=== PATIENT | female | born 1970 | race Two or more races ===

== ENCOUNTER 2023-05-17 15:30 | Outpatient (REF) | payer OTHER, SELFPAY ==
[2023-05-17 15:52] LABS: MANUAL DIFF FLAG NO
[2023-05-17 17:38] LABS: Basophils Absolute Auto 0.1 X10*3/uL (0.0-0.2); Basophils Percent Auto 0.9 % (0-2); Eosinophils Absolute Auto 0.2 X10*3/uL (0.0-0.4); Eosinophils Percent Auto 1.4 % (0-4); Hematocrit 43.8 % (37.0-47.0); Hemoglobin 14.7 g/dl (12.0-16.0); Imm Gran Abs Auto 0.05 X10*3/uL (0.00-0.03); Imm Gran Pct Auto 0.4 % (0.0-0.4); Lymphocytes Percent Auto 27.1 % (20-40); Mean Corpuscular HGB Conc 33.6 g/dl (31.0-35.0); Mean Corpuscular Hemoglobin 29.9 pg (27.0-33.0); Mean Corpuscular Volume 89.2 fL (80.0-98.0); Monocytes Absolute Auto 0.5 X10*3/uL (0.1-1.2); Monocytes Percent Auto 4.2 % (2-11); Neutrophils Absolute Auto 7.4 x10*3/uL (2.0-8.3); Platelet Count 342 X10*3/uL (160-400); Red Blood Count 4.91 X10*6/uL (4.20-5.50); Red Cell Distribution Width 13.1 % (11.0-16.0); White Blood Count 11.2 X10*3/uL (4.8-10.8)
[2023-05-17 17:50] LABS: Anion Gap 14 (12-20); Blood Urea Nitrogen 12 mg/dL (9-16); Carbon Dioxide 29 mmol/L (22-29); Chloride 102 mmol/L (96-108); Estimated Glomerular Filt Rate 38; Glucose Random 86 mg/dL (60-115); Potassium 4.1 mmol/L (3.3-5.1); Sodium 141 mmol/L (135-145)
[2023-05-17 18:03] LABS: Erythrocyte Sedimentation Rate 7 MM/HR (0-20)
[2023-05-18 08:18] LABS: Syphilis Screen Nonreactive (Nonreactive)
[2023-05-18 18:35] LABS: Lyme Abs Screen <0.90 index
[2023-05-20 08:24] LABS: Anti Nuclear Antibody Screen NEGATIVE (NEGATIVE)
== END 2023-05-17 15:31 | disposition home or self-care (01) ==
LOC: HO.LAB 15:30
PROVIDERS: Visit Provider Psychiatry & Neurology Neurology
DX: R51.9 Headache, unspecified (principal)
CPT/HCPCS: 36415; 80048; 85025; 85652; 86038; 86617; 86618; 86780

== ENCOUNTER 2025-01-09 15:53 | Outpatient (AMB) | payer OTHER, SELFPAY ==
--- NOTE | 2025-01-09 16:00 | MHC.OFFVIS ---
Intake Visit Reasons: 6 months Allergies No Known Allergies Allergy (Verified 01/09/25 16:04) Medication List - Last Reconciled 01/09/25 by Nereyda Head CNP atorvastatin 10 mg PO BEDTIME eurrfvcmnw-wqgaetkiwfxpy-ihfw 50-325-40 mg 1 tab PO Q8H PRN cholecalciferol (vitamin D3) (Vitamin D3) 50 mcg PO DAILY loratadine 10 mg PO DAILY topiramate 50 mg PO BID HPI Comments Details: 54-year-old woman with long-standing history of headaches and chronic stress. She was doing okay. Headaches were happening about 3x/week with photophobia, sonophobia, and nausea. Butalbital as needed helped. Sleep was okay. She still had some stress. [facility] Medical History (Updated 01/09/25 @ 16:02 by Nereyda Head CNP) Migraine without aura Migraine Review of Systems Const Denies chills, Denies daytime sleepiness, Reports difficulty sleeping, Denies fatigue, Denies fever(s), Denies frequent falls, Reports headache(s), Denies increased appetite, Denies poor appetite, Denies snoring, Denies weakness, Denies weight gain and Denies weight loss Eyes Denies loss of vision ENT Denies vertigo, Reports dizziness and Reports headache(s) Card Denies chest pain at rest, Denies chest pain with activity, Denies syncope, Denies leg edema and Denies palpitations Resp Denies snoring GI Denies constipation, Denies heartburn, Denies diarrhea and Denies nausea Denies urinary frequency, Denies urinary incontinence and Denies urinary urgency Musc Denies abnormal gait, Denies numbness and Denies tingling Skin/Breast Denies dry skin and Denies rash Neuro Denies abnormal gait, Denies vertigo, Reports dizziness, Denies syncope, Denies frequent falls, Reports headache(s), Denies lack of coordination, Denies loss of vision, Denies memory loss, Denies numbness, Denies restless legs, Denies seizure-like activity, Denies tingling, Denies paresthesias, Denies tremor(s) and Denies weakness Psych Denies anxiety, Denies depression, Denies auditory hallucinations, Denies memory loss, Denies visual hallucinations and Denies suicidal ideation Endo Denies fatigue and Denies palpitations Physical Exam Const Other: General Appearance:? normal, in no acute distress. Skin:? no rashes, no significant birthmarks. Heart:? S1, S2 normal, no murmurs. Lungs:? clear anteriorly and posteriorly. Extremities:? no edema. Psych:? alert, oriented, cognitive function intact, cooperative with exam. Neuro Other: Mental Status:?Normal attention, orientation, memory and affect.? Cranial Nerves:?Pupils are equal, round and reactive to light. External occular muscles are intact. Visual tanner are full. Face is symmetrical. Facial sensations are normal. Tongue is midline. Palate elevates symmetrically. Shoulder shrugging is normal. Hearing to bedside conversation is normal. Motor Examination:?Normal muscle tone, bulk and strength,?Deep tendon reflexes are 2+,?Plantars are flexor.? Sensory Exam:?....? Coordination:?No ataxia,?no titubation.? Gait Exam: Within normal limits. Cerebellar Signs:?Psrrtz-ii-wwgj and jxjq-pu-pqxr is normal.? Extrapyramidal System:?No tremor, rigidity with normal facial expressions.? Pronator Drift:?Not present.? Involuntary Movements:?No tremors seen.? Speech:?Normal.? Assessment & Plan Assessment & Plan (1) Migraine without aura: Code(s): G43.009 - Migraine without aura, not intractable, without status migrainosus Category: Medical Qualifiers: Status migrainosus presence: without status migrainosus Intractability: not intractable Qualified Code(s): G43.009 - Migraine without aura, not intractable, without status migrainosus Plan: Continue topiramate 50mg 1 tablet twice a day Continue tvxzftghvm-[id number]-drwx 50-325-40mg 1 tablet as needed q8h for headache #10 for 30 days Start ondansetron 4mg 1 tablet as needed for nausea (2) Chronic daily headache: Code(s): R51.9 - Headache, unspecified Category: Medical Plan Meds tried: amitriptyline, sumatriptan Medications: New topiramate 50 mg PO BID 180 tabs 1RF 90 days ondansetron 4 mg PO DAILY PRN 10 tabs 5RF nausea and vomiting 30 days eaasfgnucu-jxpsakjgpfejr-erbv 50-325-40 mg 1 tab PO Q8H PRN 10 tabs 5RF headache 30 days Coding Level of Care Code Est Pt Level 4 (06101) Diagnoses Migraine without aura and without status migrainosus, not intractable G43.009 Status migrainosus presence: without status migrainosus Intractability: not intractable Chronic daily headache R51.9
--- OUTSIDE RECORDS SUMMARY | 2025-01-09 16:09 | XMS_ITS | Clinical Summary ---
Author Organization [facility] [address] [facility] Address [address] [place], [place] Phone Care Team Providers Care Financial Recruiter Name Role Phone Aleja Fitch MD Primary Care Prov ider Allergies No known active allergies Medications topiramate (TOPAMAX) 50 mg tablet TAKE 1 TABLET BY MOUTH EVERY DAY FOR 90 DAYS 01/27/20 24 Active loratadine (CLARITIN) 10 mg tablet Take 1 Tablet by mouth daily. 02/01/20 24 Active multivitamin with minerals (MULTIPLE VITAMIN-MINERA LS ORAL) Take by mouth. Active atorvastatin (LIPITOR) 10 mg tablet TAKE 1 TABLET BY MOUTH EVERYDAY AT BEDTIME 90 tablet 1 07/21/19 25 Active Vitamin D3 50 mcg (2,000 unit) tablet TAKE 1 TABLET BY MOUTH EVERY DAY 90 tablet 1 09/15/19 25 Active meclizine (ANTIVERT) 25 mg tablet Take 1 tablet (25 mg total) by mouth 2 (two) times a day if needed for dizziness for up to 20 doses. 20 tablet 10/26/19 25 Active traMADoL (ULTRAM) 50 mg tablet Take 1 tablet (50 mg total) by mouth at bedtime as needed for moderate pain. Max Daily Amount: 50 mg 15 tablet 01/03/20 25 Active linaCLOtide (Linzess) 145 mcg capsule TAKE 1 CAPSULE BY MOUTH EVERY DAY 11/21/19 24 025 Discontinued(No n-compliance) predniSONE (DELTASONE) 10 mg tablet Take 2 tabs PO daily for 3 days then 1 tab PO daily for 4 days 10 tablet 12/13/19 25 025 Discontinued(Th erapy completed) baclofen (LIORESAL) 10 mg tablet Take 1 tablet (10 mg total) by mouth 2 (two) times a day if needed for muscle spasms (or pain). 60 each 12/13/19 25 025 Discontinued(In effective) traMADoL (ULTRAM) 50 mg tablet Take 1 tablet (50 mg total) by mouth at bedtime as needed for moderate pain. Max Daily Amount: 50 mg 15 tablet 01/03/20 25 025 Discontinued Active Problems Problem Noted Date Diagnosed Date Overweight (BMI 25.0-29.9) 02/01/2024 Seasonal allergies 02/01/2024 Vitamin D deficiency 09/09/2022 Mixed hyperlipidemia 03/27/2016 Encounters Date Type Department Care Team Description 01/02/2025 9:00 AM EDT Office Visit Adult Medicine [address] [phone] Patty Smith PA Acute exacerbation of chronic low back pain (Primary Dx) 01/01/2025 Telephone Adult [address] [phone] Aleja Alexander MD Referral (Neurology Referral) 12/12/2024 1:20 PM EDT - 12/12/2024 11:59 PM EDT Hospital Encounter [address] [phone] Acute exacerbation of chronic low back pain Discharge Disposition: Home or Self Care 12/12/2024 1:00 PM EDT Office Visit Adult [address] [phone] Patty Smith PA Acute exacerbation of chronic low back pain (Primary Dx) 11/27/2024 Telephone [facility] Occupational Therapy [address] [phone] Sherri Peterson OT 11/23/2024 4:30 PM EDT Evaluation [facility] [address] [phone] Sherri Peterson, OT Vertigo 11/23/2024 Plan of Care Documentation [facility] Occupational Therapy [address] [phone] 10/25/2024 7:30 AM EDT Office Visit [address] [phone] Aleja Alexander MD Adult general medical examination (Primary Dx); Routine medical exam; Chronic idiopathic constipation; Vertigo; Pneumococcal vaccination indicated from Last 3 Months Immunizations Name Administration Dates Next Due Influenza Quadravalent, MDCK , 0.5ml, preservative free (Flucelvax) 6mo and older 03/16/2023,04/16/2022,02/16/2020,2018 Influenza Quadravalent, MDCK , 0.5ml, with preservative (Flucelvax) 6mo and older 02/16/2018,04/22/2017 Influenza trivalent, 0.5mL, preservative free (Fluarix; FluLaval; Fluzone) ages 6mo and older (Afluria) 3 years and older 03/29/2024,03/27/2016 RegeneMed SARS-CoV-2 COVID-19, mRNA, LNP-S, preservative free 07/06/2021,11/03/2020,10/13/2020 Pneumococcal conjugate 20 va lent (Prevnar 20, PCV 20) 2mo and older 10/25/2024 Tdap Tetanus diptheria acell ular pertussis (Boostrix; Adacel) 7yo and older 09/09/2022,09/09/2012 Surgical History Surgery Date Site/Laterality Comments OTHER SURGICAL HISTORY PROCEDURE: ---- OTHER ----; COMMENT: breast augmentation OTHER SURGICAL HISTORY PROCEDURE: ---- OTHER ----; COMMENT: abdominoplasty TUBAL LIGATION PROCEDURE: HISTORICAL TUBAL LIGATION OTHER SURGICAL HISTORY PROCEDURE: ---- OTHER ----; COMMENT: Liposuction and fat transfer COLONOSCOPY 02/18/2022 PROCEDURE: HISTORICAL COLONOSCOPY; COMMENT: appendiceal nodule or inversion - biopsy normal mucosa OTHER SURGICAL HISTORY PROCEDURE: IMPLANT BREAST SILICONE/EQ Medical History Medical History Date Comments Migraines DX:Migraines Back pain DX:Back pain GERD (gastroesophageal reflux disease) DX:GERD (gastroesophageal reflux disease) Hyperlipidemia DX:Hyperlipidemi a Depression DX:Depression Anxiety DX:Anxiety Tobacco abuse DX:Tobacco abuse Family History Medical History Relation Name Comments No Known Problems Brother 1 No Known Problems Brother 2 Hyperlipidemia Father No Known Problems Maternal Grandfather No Known Problems Maternal Grandmother Heart attack Mother brain aneurysm No Known Problems Paternal Grandfather Other: Tremor Paternal Grandmother arthri tis No Known Problems Sister No Known Problems Son 1 No Known Problems Son 2 Relation Name Status Comments Brother 1 Alive Brother 2 Alive Father Alive Maternal Grandfather Maternal Grandmother Mother Paternal Grandfather Paternal Grandmother Sister Alive Son 1 Alive Son 2 Alive Son 3 Alive Social History Tobacco Use Types Packs/Day Years Used Date Smoking Tobacco: Former Cigarettes Q uit: 05/24/2017 Smokeless Tobacco: Never Tobacco Cessation:Counseling Given: Not Answered Alcohol Use Standard Drinks/Week Comments No 0 (1 standard drink = 0.6 oz pur e alcohol) Housing Instability Answer Date Recorde d Are you worried that in the next 2 months you may not have stable housing? No 08/15/2024 Food Access & Nutrition Answer Date Rec orded Do you have access to a vari ety of food including fruits and vegetables? Yes 08/15/2024 Access to Healthcare Answer Date Record ed Within the last 3 months, ho w many times did you visit the emergency department for your medical care? 0 08/15/2024 Health Literacy Answer Date Recorded How often do you need to hav e someone help you when you read instructions, pamphlets, or other written material from your doctor or pharmacy? Sometimes 08/15/2024 Caregiver: How often do you need to have someone help you when you read instructions, pamphlets, or other written material from your doctor or pharmacy? Not on file 08/15/2024 Financial Risk Answer Date Recorded How hard is it for you to pa y for the very basics like food, housing, medical care, and air conditioning / heating? Somewhat hard 08/15/2024 Transportation Answer Date Recorded Has the lack of transportati on kept you from meetings, work, or from getting things needed for daily living? No Has the lack of transportati on kept you from medical appointments or from getting medications? No 08/15/2024 Social Isolation Answer Date Recorded How often do you feel lonely or isolated from those around you? Sometimes 08/15/2024 Food Risk Answer Date Recorded Within the past 12 months we worried whether our food would run out before we got money to buy more. Never true 08/15/2024 Within the past 12 months th e food we bought just didn't last and we didn't have money to get more. Never true 08/15/2024 Dependent Care Answer Date Recorded Do you need help finding or paying for care for your loved ones. For example, manager child or elderly care for an older adult? No 08/15/2024 Education Answer Date Recorded Do you think completing more education or training, like finishing a GED, going to college, or learning a trade, would be helpful for you? No 08/15/2024 Employment and Income Answer Date Recor ded During the last four weeks, have you been actively looking for work? No 08/15/2024 Living Situation Answer Date Recorded What is your living situation? 0 08/15/2024 Comments No Sex and Gender Information Value Date Recorded Sex Assigned at Not on file Legal Sex Female 6:17 AM EST Gender Identity Not on file Sexual Orientation Not on file Obstetrics History Last Filed Vital Signs Vital Sign Reading Time Taken Comments Blood Pressure 117/71 01/02/2025 8:47 AM EDT Pulse 70 01/02/2025 8:47 AM EDT Temperature 36.1 C (97 F) 01/02/2025 8:47 AM EDT Respiratory Rate 15 01/02/2025 8:47 AM EDT Oxygen Saturation 98% 01/02/2025 8:47 AM EDT Inhaled Oxygen Concentration - - Weight 61.2 kg (135 lb) 01/02/2025 8:47 AM EDT Height 152.4 cm (5') 01/02/2025 8:47 AM EDT Body Mass Index 26.37 01/02/2025 8:47 AM EDT Plan of Treatment Upcoming Encounters Date Type Department Care Team (Late st Contact Info) Description 01/16/2025 4:30 PM EDT Evaluation [address] [phone] Margaret Reynoso, PT 03/07/2025 8:00 AM EDT Office Visit Adult Medicine [address] [phone] Aleja Fitch MD [address] [place] [phone] 04/11/2025 8:50 AM EST Office Visit Gastroenterology [place] [address] [facility] [address] [place] [phone] Aster Mary PA 175 [facility] [address] [place] [address] 10/26/2025 7:30 AM EDT Office Visit Adult Medicine [address] [phone] Aleja Fitch MD [address] [place] [phone] Health Maintenance Due Date Last Done Comments Zoster Vaccines (1 of 2) 2021 Cervical Cancer Screening: Pap Smear 05/22/2023 05/22/2020 Influenza Vaccine (#1) 2025 , 03/16/2023, 04/16/2022, Additional history exists Social Influencers of Health Screening 08/15/2025 08/15/2024 Breast Cancer Screening 10/06/2025 10/06/2024, 11/11 Cholesterol Screening (Lipid Panel) 10/25/2029 10/25/2024, 02/01/2024, 02/01/2024 Colorectal Cancer Screening: Colonoscopy 02/21/2032 02/18/2022 DTaP,Tdap,and Td Vaccines (3 - Td or Tdap) 09/09/2032 09/09/2022, 09/09/2012 HIV Screening Completed 03/28/2016 Hepatitis C Screening Completed 03/28/2016 COVID-19 Vaccine Discontinued 03/06/2023, , 11/03/2020, Additional history exists Depression Screening Completed 08/15/2024 Pneumococcal Vaccine: 50+ Years Completed 10/25/2024 HIB Vaccines Aged Out No longer eligi ble based on patient's age to complete this topic HPV Vaccines Aged Out No longer eligi ble based on patient's age to complete this topic Hepatitis A Vaccines Aged Out No long er eligible based on patient's age to complete this topic Hepatitis B Vaccines Discontinued IPV Vaccines Aged Out No longer eligi ble based on patient's age to complete this topic MMR Vaccines Aged Out No longer eligi ble based on patient's age to complete this topic Meningococcal ACWY Vaccine Aged Out N o longer eligible based on patient's age to complete this topic Meningococcal B Vaccine Aged Out No l onger eligible based on patient's age to complete this topic RSV Immunization Patients Under 20 months Aged Out No longer eligible based on patient's age to complete this topic Varicella Vaccines Aged Out No longer eligible based on patient's age to complete this topic Goals Goal Patient Goal Type Associated Problems Recent Progress Patient-Stated? Author vestibular rehab 6-8 visits General No Sherri Peterson, OT Note: Return demo HEP w/ progression TUG in no greater than 11 sec w/out LOB X1 horiz viewing at least 100 bpm w/out signif symptoms to promote tolerance for dual screens at work Restored tolerance for walking dogs, performing light weight workout w/out signif symptoms Gait w/ horiz head turns to scan for items in environ ie grocery shelves, no LOB nor signif subjective dizziness Procedures Procedure Name Priority Date/Time Associated Diagnosis Comments XR LUMBAR SPINE 4+ VIEWS Routine 12/12/2024 1:36 PM EDT Acute exacerbation of chronic low back pain CBC WITH AUTO DIFFERENTIAL Routine 10/25/2024 8:28 AM EDT Adult general medical examination Chronic idiopathic constipation Vertigo COMPREHENSIVE METABOLIC PANEL Routine 10/25/2024 8:28 AM EDT Adult general medical examination Chronic idiopathic constipation Vertigo LIPID PANEL WITH REFLEX TO DIRECT LDL Routine 10/25/2024 8:28 AM EDT Adult general medical examination Chronic idiopathic constipation Vertigo CBC AND DIFFERENTIAL Routine 10/25/2024 8:28 AM EDT Adult general medical examination Chronic idiopathic constipation Vertigo THYROID STIMULATING HORMONE Routine 10/25/2024 8:28 AM EDT Adult general medical examination Chronic idiopathic constipation Vertigo ECG 12-LEAD TRACING ONLY Routine 10/25/2024 8:13 AM EDT Vertigo EXTERNAL MAMMOGRAM REPORT 10/06/2024 HM COLONOSCOPY Routine 02/18/2022 HM PAP SMEAR Routine 05/22/2020 HEPATITIS C SCREENING Routine 03/28/2016 HIV SCREENING Routine 03/28/2016 from Last 3 Months or Most Recently Relevant to Health Maintenance Results * XR Lumbar Spine 4+ Views (12/12/2024 1:36 PM EDT) Anatomical Region Laterality Modality Spine, L-spine Radiographic Alecia ging 12/12/2024 4:57 PM EDT Narrative 12/12/2024 4:59 PM EDT Lumbosacral spine, 4 views. History pain. Compared with prior studies, latest from 03/29/2024. Or vertebral bodies are maintained in height. There is minimal arm discogenic spurring at several levels, unchanged. There are mild hypertrophic changes in the facet joints at L5-S1 level. There is a stable small sclerotic focus in the left iliac bone, most likely bone island. There is a large soft tissue calcification adjacent to the left greater trochanter. There is IUD in in the pelvis. When compared with previous examination no significant interval change noted. CONCLUSIONS: Stable degenerative changes. Additional other stable findings as detailed. -------- FINAL REPORT -------- Dictated By: Vale Hartmann Dictated Date: 12/12/2024 16:57 ET Assigned Physician: Vale Hartmann Reviewed and Electronically Signed By: Vale Hartmann Signed Date: 12/12/2024 16:59 ET Workstation ID: [id number] Transcribed By: Self Edit Transcribed Date: 12/12/2024 16:57 ET Procedure Note Vale Hartmann MD - 12/12/2024 Lumbosacral spine, 4 views. History pain. Compared with prior studies, latest from 03/29/2024. Or vertebral bodies are maintained in height. There is minimal armdiscogenic spurring at several levels, unchanged. There are mildhypertrophic changes in the facet joints at L5-S1 level. There is a stablesmall sclerotic focus in the left iliac bone, most likely bone island.There is a large soft tissue calcification adjacent to the left greatertrochanter. There is IUD in in the pelvis. When compared with previous examination no significant interval changenoted. CONCLUSIONS: Stable degenerative changes. Additional other stable findingsas detailed. -------- FINAL REPORT -------- Dictated By: Vale Hartmann Dictated Date: 12/12/2024 16:57 ET Assigned Physician: Vale Hartmann Reviewed and Electronically Signed By: Vale Hartmann Signed Date: 12/12/2024 16:59 ET Workstation ID: [id number] Transcribed By: Self Edit Transcribed Date: 12/12/2024 16:57 ET Patty BRYAN IMG XR PROCEDURES Final Result * Lipid panel with reflex to direct LDL (10/25/2024 8:28 AM EDT) Cholesterol 152 0 - 200 mg/dL LAB CHEMISTRY METHOD 10/25/2024 10:53 AM EDT [facility] Triglycerides 112 0 - 150 mg/dL LAB CHEMISTRY METHOD 10/25/2024 10:53 AM EDT [facility] HDL 50 >=40 mg/dL LAB CHEMISTRY METHOD 10/25/2024 10:53 AM EDT [facility] LDL Calculated 80 0 - 100 mg/dL LAB CHEMISTRY METHOD 10/25/2024 10:53 AM EDT [facility] VLDL Cholesterol Gibson 22.4 mg/dL LAB CHEMISTRY METHOD 10/25/2024 10:53 AM EDT [facility] Non HDL Chol. (LDL+VLDL) 102 <145 mg/dL LAB CHEMISTRY METHOD 10/25/2024 10:53 AM EDT [facility] Chol/HDL Ratio 3.0 0.0 - 4.4 LAB CHEMISTRY METHOD 10/25/2024 10:53 AM EDT [facility] Blood Venous blood specimen / Unknown Venipuncture / Unknown 10/25/2024 8:28 AM EDT 10/25/2024 8:34 AM EDT us Aleja Fitch MD LAB BLOOD ORDERABL ES Final Result [facility] [address] [place] [address], * CBC auto differential (10/25/2024 8:28 AM EDT) WBC 8.1 4.8 - 10.8 K/mcL LAB HEMETOLOGY METHOD [facility] RBC 4.60 3.80 - 4.80 M/mcL LAB HEMETOLOGY METHOD 10/25[facility]2024 10[facility] Hemoglobin 13.8 11.5 - 16.0 g/dL LAB HEMETOLOGY METHOD 10/25/2024 10:18 AM EDT [facility] Hematocrit 42.0 35.0 - 47.0 % LAB HEMETOLOGY METHOD 10/25/2024 10:18 AM [facility] MCV 90.5 79.0 - 98.0 FL LAB HEMETOLOGY METHOD 10/25/2024 10:18 AM [facility] MCH 29.7 27.0 - 32.0 pcg LAB HEMETOLOGY METHOD 10/25/2024 10:18 AM [facility] MCHC 32.9 32.0 - 37.0 g/dL LAB HEMETOLOGY METHOD 10/25/2024 10:18 AM [facility] RDW 13.4 11.0 - 15.0 % LAB HEMETOLOGY METHOD 10/25/2024 10:18 AM [facility] Platelets 330 130 - 400 K/mcL LAB HEMETOLOGY METHOD 10/25/2024 10:18 AM [facility] MPV 10.8 7.0 - 11.0 FL LAB HEMETOLOGY METHOD 10/25/2024 10:18 AM [facility] NRBC 0.0 <1.0 % LAB HEMETOLOGY METHOD 10/25/2024 10:18 AM [facility] NRBC Absolute 0.00 <0.10 K/mcL LAB HEMETOLOGY METHOD 10/25/2024 10:18 AM [facility] Neutrophils Relative 55.6 % LAB HEMETOLOGY METHOD 10/25/2024 10:18 AM [facility] Lymphocytes Relative 36.3 % LAB HEMETOLOGY METHOD 10/25/2024 10:18 AM [facility] Monocytes Relative 5.1 % LAB HEMETOLOGY METHOD 10/25/2024 10:18 AM [facility] Eosinophils Relative 1.7 % LAB HEMETOLOGY METHOD 10/25/2024 10:18 AM [facility] Basophils Relative 1.1 % LAB HEMETOLOGY METHOD 10/25/2024 10:18 AM [facility] Immature Granulocytes Relative 0.2 % LAB HEMETOLOGY METHOD 10/25/2024 10:18 AM [facility] Neutrophils Absolute 4.49 1.50 - 7.00 K/mcL LAB HEMETOLOGY METHOD 10/25/2024 10:18 AM EDT [facility] Lymphocytes Absolute 2.94 1.00 - 5.00 K/mcL LAB HEMETOLOGY METHOD 10/25/2024 10:18 AM EDT [facility] Monocytes Absolute 0.41 0.20 - 1.00 K/[facility] LAB HEMETOLOGY METHOD 10/25/2024 10:18 AM EDT [facility] Eosinophils Absolute 0.14 0.00 - 0.50 K/[facility] LAB HEMETOLOGY METHOD 10/25/2024 10:18 AM EDT [facility] Basophils Absolute 0.09 0.00 - 0.20 K/[facility] LAB HEMETOLOGY METHOD 10/25/2024 10:18 AM EDT [facility] Immature Granulocytes Absolute 0.02 0.00 - 0.03 K/[facility] LAB HEMETOLOGY METHOD 10/25/2024 10:18 AM EDT [facility] Blood Venous blood specimen / Unknown Venipuncture / Unknown 10/25/2024 8:28 AM EDT 10/25/2024 8:34 AM EDT Aleaj Fitch MD LAB BLOOD ORDERABL ES Final Result [facility] [address] [place] [address], * Thyroid stimulating hormone (10/25/2024 8:28 AM EDT) TSH 1.62 0.40 - 4.00 mcIU/mL LAB CHEMISTRY METHOD 10/25/2024 11:50 AM EDT [facility] Blood Venous blood specimen / Unknown Venipuncture / Unknown 10/25/2024 8:28 AM EDT 10/25/2024 8:34 AM EDT Aleja Fitch MD LAB BLOOD ORDERABL ES Final Result [facility] [address] [place] [address], * Comprehensive metabolic panel (10/25/2024 8:28 AM EDT) Sodium 138 133 - 145 mmol/L LAB CHEMISTRY METHOD 10/25/2024 10:53 AM T [facility] Potassium 4.2 3.5 - 5.5 mmol/L LAB CHEMISTRY METHOD 10/25/2024 10:53 AM [facility] Chloride 109 96 - 110 mmol/L LAB CHEMISTRY METHOD 10/25/2024 10:53 AM [facility] CO2 24 21 - 32 mmol/L LAB CHEMISTRY METHOD 10/25/2024 10:53 AM [facility] Anion Gap 5 3 - 11 LAB CHEMISTRY METHOD 10/25/2024 10:53 AM [facility] Glucose 82 70 - 100 mg/dL LAB CHEMISTRY METHOD 10/25/2024 10:53 AM [facility] BUN 18 5 - 25 mg/dL LAB CHEMISTRY METHOD 10/25/2024 10:53 AM [facility] Creatinine 0.80 0.50 - 1.10 mg/dL LAB CHEMISTRY METHOD 10/25/2024 10:53 AM [facility] eGFR 88 >=60 mL/min/1. 73m2 LAB CHEMISTRY METHOD 10/25/2024 10:53 AM [facility] Comment:Calculation based on the Chronic Kidney Disease Epidemiology Collaboration (CKD-EPI) equation refit without adjustment for race. BUN/Creatinine Ratio 22.5 LAB CHEMISTRY METHOD 10/25/2024 10:53 AM [facility] Calcium 9.2 8.5 - 10.5 mg/dL LAB CHEMISTRY METHOD 10/25/2024 10:53 AM [facility] AST (SGOT) 22 10 - 42 unit/L LAB CHEMISTRY METHOD 10/25/2024 10:53 AM EDT [facility] ALT (SGPT) 39 10 - 60 unit/L LAB CHEMISTRY METHOD 10/25/2024 10:53 AM EDT [facility] Alkaline Phosphatase 106 42 - 121 unit/L LAB CHEMISTRY METHOD 10/25/2024 10:53 AM EDT [facility] Total Protein 7.7 6.0 - 8.0 g/dL LAB CHEMISTRY METHOD 10/25/2024 10:53 AM EDT [facility] Albumin 4.2 3.2 - 5.0 g/dL LAB CHEMISTRY METHOD 10/25[facility]2024 10[facility] Total Bilirubin 0.6 0.0 - 1.4 mg/dL LAB CHEMISTRY METHOD 10/25/2024 10:53 AM EDT [facility] Blood Venous blood specimen / Unknown Venipuncture / Unknown 10/25/2024 8:28 AM EDT 10/25/2024 8:34 AM EDT Aleja Fitch MD LAB BLOOD ORDERABL ES Final Result [facility] [address] [place] [address], * ECG 12 lead Tracing Only (10/25/2024 8:13 AM EDT) Aleja Fitch MD ECG ORDERABLES Fi nal Result * External Mammogram Report (10/06/2024) Anatomical Region Laterality Modality Mammography Provider [facility] IMG BI PROCEDURES Final Result * Colonoscopy (02/18/2022) Colonoscopy no interpretation , abstracted Anatomical Region Laterality Modality Other us Historical Provider HEALTH MAINTENANCE Final Result * Pap Smear (05/22/2020) Pap smear no interpretation , abstracted Historical Provider HEALTH MAINTENANCE Final Result * HIV Screening (03/28/2016) HIV Screening abstracted Historical Provider HEALTH MAINTENANCE Final Result * Hepatitis C Screening (03/28/2016) Hepatitis C Screening abstracted Historical Provider HEALTH MAINTENANCE Final Result from Last 3 Months or Most Recently Relevant to Health Maintenance Insurance * Guarantor: Evon Obrien Account Type Relation to Patient Date of Phone Billing Address Personal/Family Self 1970 [phone] (Work) [address] [place] [phone] [facility] Care Teams Financial Recruiter Relationship Specialty Start Date End Date Aleja Fitch MD [address] [place] [phone] PCP - General Internal Medicine 06/23/24
== END 2025-01-09 16:10 | disposition home or self-care (01) ==
LOC: HO.HSM 15:54
PROVIDERS: PCP Internal Medicine; Referring Provider Internal Medicine; Visit Provider Registered Nurse
DX: G43.009 Migraine without aura, not intractable, without status migrainosus (principal); R51.9 Headache, unspecified
CPT/HCPCS: 99214

== ENCOUNTER 2025-05-24 08:37 | Outpatient (AMB) | payer OTHER, SELFPAY ==
--- NOTE | 2025-05-24 08:42 | MHC.OFFVIS ---
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 C/o vaginal dryness Supervisor Assembly Stock Required: No Information Interpreted: non-clinical & clinical Robotics Testing Technician: Robotics Testing Technician Present (Kristin) Accompanied by: Self / Same As Patient Allergies No Known Allergies Allergy (Verified 05/24/25 08:46) Medication List - Last Reconciled 05/24/25 by Trudi Fajardo LPN atorvastatin 10 mg PO BEDTIME [id number]-[id number]-[id number] 50-325-40 mg 1 tab PO Q8H PRN 30 days cholecalciferol (vitamin D3) (Vitamin D3) 50 mcg PO DAILY loratadine 10 mg PO DAILY ondansetron 4 mg PO DAILY PRN 30 days topiramate 50 mg PO BID 90 days Is last menstrual period known: No Do you need a note to return to daycare/school/sports/work: No HPI Comments Details: Patient is a premenopausal woman presenting for her new patient new annual crib attendant examination. 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 for AUB at [facility], regular menses until LMP 10/2024, not experiencing any hot flashes. Last pap in [facility], normal results 2024-patient able to get results. Currently sexually active. Admit to vaginal dryness, irritation and burning with intimacy. STI testing offered; she declines. Attempting to eat a healthy diet with calcium and vitamin D and stays active with exercise. Last mammogram; 2024, [facility] no records available today. Colonoscopy is UTD. 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 Female Reproductive History Menstrual Age of Menarche: 12 Date of last menstrual period: 10/22/24 control method: permanent sterilization Total pregnancies: 3 Number of Living Children: 3 Date of last pap smear: 02/22/25 History of abnormal pap smear: No Date of Mammogram: 06/24/24 (Done at [facility]- ordered by PCP) History of abnormal mammogram: No Review of Systems Const All systems reviewed & are unremarkable except as noted in HPI and below Reports as per HPI Eyes Reports no additional complaints ENT Reports no additional complaints Card Reports no additional complaints Resp Reports no additional complaints GI Reports as per HPI and Reports no additional complaints Reports as per HPI Musc Reports no additional complaints Skin/Breast Reports as per HPI Neuro Reports no additional complaints Psych Reports no additional complaints Endo Reports no additional complaints Eric/Lymph Reports no additional complaints Aller/Immun Reports no additional complaints Physical Exam Vital Signs: Last Vital Signs BP 98/60 05/24/25 08:44 BMI result Body Mass Index 26.6 Const General: cooperative, healthy appearing, no acute distress, well developed and alert Orientation/consciousness: patient oriented x3 HEENT Head: Yes normal to inspection Eyes General: appearance normal, both eyes and all related structures Neck Neck: Yes normal visual inspection Thyroid: Thyroid normal Chest Other: Bilateral implants and postsurgical scarring Chest palpation & inspection: normal inspection of the chest and other (no puckering, dimpling, peau de orange, retraction, discharge, masses) Breast/axilla inspection: normal inspection of the breasts Breast/axilla palpation: normal palpation of the breasts Resp Effort & Inspection: normal respiratory effort GI Inspection: Yes normal to inspection Palpation (GI): Soft to palpation Rectal Exam - Female: deferred General: Yes bladder normal to palpation External Female Exam: normal external appearance and normal appearance of the urethra Speculum Exam - Vagina: normal appearance of the vagina, normal palpation and normal vaginal discharge Speculum Exam - Cervix: normal appearance of the cervix, normal palpation and Other cervical findings present (IUD strings at the os) Bimanual exam- vagina & uterus: normal bimanual exam, normal palpation, uterine size normal, bladder normal to palpation, normal palpation and non-tender Bimanual Exam- Adnexa, other: no masses Skin General skin exam: no rashes or lesions noted Rashes: no rashes Neuro General: patient oriented x3 Cognition (Neuro): normal cognition Extrem General: Yes normal to inspection Psych Attitude: cooperative Thought process: Normal thought process present Assessment & Plan Assessment & Plan (1) Encounter for well woman exam with routine gynecological exam: Code(s): Z01.419 - Encounter for gynecological examination (general) (routine) without abnormal findings Category: Medical Plan: Discussed: Current recommendations for pap smears per ASCCP guidelines. Breast awareness, periodic self breast exams and yearly mammogram. Sign release for mammogram records. Maintain a healthy lifestyle, well balanced diet including Calcium 1,200 mg and Vitamin D 600 IU daily, and routine exercise. Menopause verses perimenopause. Menopause is definitive of 1 year of no menses or 12 months in succession. Report any abnormal uterine bleeding- prolonged episodes, or short intervals less than 24 days. Perimenopausal transitioning. Patient verbalizes understanding and agrees to the plan of care. She was given opportunity to ask questions and all questions were answered to the best of my ability. RTO in 1 year for annual crib attendant exam. This note is constructed using voice recognition software. While every effort has been made to ensure accuracy, magnet valve assembler errors may have been included. (2) Vaginal dryness: Code(s): N89.8 - Other specified noninflammatory disorders of vagina Plan BV panel obtained await results for final plan of care. Discussed over the counter products for vaginal dryness and pain, estrogen supplementation, use a website product lines reviewed in detail. Follow up PRN. The patient expressed understanding and agreement with the plan of care. All of her questions and concerns were addressed to the best of my ability. Orders: Orders Bacterial Vaginosis Panel Today Z11.3 - Encounter for screening for infections with a predominantly sexual mode of transmission Coding Level of Care Code New Pt Prev Care 40-64y(15649) Diagnoses Encounter for well woman exam with routine gynecological exam Z01.419 Vaginal dryness N89.8
[2025-05-24 08:44] VITALS: BP 98/60; BMI 26.6
--- OUTSIDE RECORDS SUMMARY | 2025-05-24 09:06 | XMS_ITS | Clinical Summary ---
Author Organization [facility] [address] [place] [address] Address [address] [place] [address] Phone Care Team Providers Care Baggage And Mail Agent Name Role Phone Aleja Fitch MD Primary Care Prov ider Allergies No known active allergies Medications topiramate (TOPAMAX) 50 mg tablet TAKE 1 TABLET BY MOUTH EVERY DAY FOR 90 DAYS 4 Active loratadine (CLARITIN) 10 mg tablet Take 1 Tablet by mouth daily. 4 Active multivitamin with minerals (MULTIPLE VITAMIN-MINERAL S ORAL) Take by mouth. Activ e Vitamin D3 50 mcg (2,000 unit) tablet TAKE 1 TABLET BY MOUTH EVERY DAY 90 tablet 1 5 Active meclizine (ANTIVERT) 25 mg tablet Take 1 tablet (25 mg total) by mouth 2 (two) times a day if needed for dizziness for up to 20 doses. 20 tablet 5 Active atorvastatin (LIPITOR) 10 mg tablet Take 1 tablet (10 mg total) by mouth at bedtime. 90 tablet 1 5 Active Active Problems Problem Noted Date Diagnosed Date Calcific tendinitis of left hip 03/07/2025 Assessment & Plan (03/07/2025 8:41 AM EDT): Patient with chronic left hip pain, evaluated in [facility], has an MRI that reported Calcific tendinitis of the gluteus medius, with peritrochanteric inflammatory changes, a lesion of the left acetabulum, ischial tibial enthesopathy, inflammatory changes of the soft tissue next to the Kocsis (possible pilonidal disease). She was prescribed injectable Betamethasone, and Glucosamine with improvement. Now she is working with PT for this issue. Will place a referral for ortho evaluation. Orders: Ambulatory referral to Orthopedic; Future Lumbar pain 03/07/2025 Assessment & Plan (03/07/2025 8:41 AM EDT): Chronic back pain. Improvement with PT, feels much better. MRI lumbar spine from [facility] reported Osteochondrosis, facetary disease, bulging of L4-L5 disc, non compressive bluging and protrusion of L5-S1. Overweight (BMI 25.0-29.9) 02/01/2024 Seasonal allergies 02/01/2024 Vitamin D deficiency 09/09/2022 Mixed hyperlipidemia 03/27/2016 Encounters Date Type Department Care Team Description 03/19/2025 4:30 PM EDT Treatment [address] [phone] Margaret Reynoso, ANDRE Acute exacerbation of chronic low back pain (Primary Dx) 03/14/2025 4:30 PM EDT Treatment [address] [phone] Margaret Reynoso, ANDRE Acute exacerbation of chronic low back pain (Primary Dx) 03/12/2025 4:30 PM EDT Treatment [address] [address] Nasim Sandoval PTA Acute exacerbation of chronic low back pain (Primary Dx) 03/07/2025 5:00 PM EDT Treatment [address] [phone] Margaret Reynoso, ANDRE Acute exacerbation of chronic low back pain (Primary Dx) 03/07/2025 8:00 AM EDT Office Visit [address] [phone] DensonAleja Bernabe MD Calcific tendinitis of left hip (Primary Dx); Lumbar pain 03/05/2025 4:30 PM EDT Treatment [address] [address] Nasim Sandoval PTA Acute exacerbation of chronic low back pain (Primary Dx) 02/28/2025 4:30 PM EDT Treatment [facility] [address] [address] Margaret Reynoso, ANDRE Acute exacerbation of chronic low back pain (Primary Dx) from Last 3 Months Immunizations Immunization Administration Dates Next Due Influenza Quadravalent, MDCK , 0.5ml, preservative free (Flucelvax) 6mo and older 03/16/2023,04/16/2022,02/16/2020,2018 Influenza Quadravalent, MDCK , 0.5ml, with preservative (Flucelvax) 6mo and older 02/16/2018,04/22/2017 Influenza trivalent, 0.5mL, preservative free (Fluarix; FluLaval; Fluzone) ages 6mo and older (Afluria) 3 years and older 03/29/2024,03/27/2016 Skift SARS-CoV-2 COVID-19, mRNA, LNP-S, preservative free 07/06/2021,11/03/2020,10/13/2020 [...] Years Used Date Smoking Tobacco: Former Cigarettes 0.3 Q uit: 05/24/2017 Smokeless Tobacco: Never Tobacco [...] care for your loved ones. For example, summer child caregiver or elderly care for an older adult? [...] Date Recorded What is your living situation? Unrecognized valu e 08/15/2024 Comments No Sex and Gender Information Value Date Recorded Sex Assigned at Female 02/28/2025 3:52 PM EDT Legal Sex Female 6:17 AM EST Gender Identity Female 02/28/2025 3:52 PM EDT Sexual Orientation Straight 02/28/2025 3: 52 PM EDT Last Filed Vital Signs Vital Sign Reading Time Taken Comments Blood Pressure 124/75 03/07/2025 7:40 AM EDT Pulse 63 03/07/2025 7:40 AM EDT Temperature 35.7 C (96.2 F) 03/07/2025 7:40 AM EDT Respiratory Rate 14 03/07/2025 7:40 AM EDT Oxygen Saturation 98% 03/07/2025 7:40 AM EDT Inhaled Oxygen Concentration - - Weight 60.6 kg (133 lb 9.6 oz) 03/07/2025 7:40 A M EDT Height 154.9 cm (5' 1 ) 03/07/2025 7:40 AM EDT Body Mass Index 25.24 03/07/2025 7:40 AM EDT Plan of Treatment Upcoming Encounters Date Type Department Care Team (Late st Contact Info) Description 10/26/2025 7:30 AM EDT Office Visit Adult Medicine [facility] [address] [place] [address] Aleja Fitch MD [address] [place], [place] Health Maintenance Due Date Last Done Comments [...] - Td or Tdap) 09/09/2032 09/09/2022, 09/09/2012 RSV Immunization Adult Patients (1 - 1-dose 75+ series) 2046 HIV Screening Completed 03/28/2016 Hepatitis C Screening [...] Procedure Name Priority Date/Time Associated Diagnosis Comments LIPID PANEL WITH REFLEX TO DIRECT LDL Routine 10/25/2024 8:28 AM EDT Adult general medical examination Chronic idiopathic constipation Vertigo EXTERNAL MAMMOGRAM REPORT 10/06/2024 COLONOSCOPY Routine 02/18/2022 PAP SMEAR Routine 05/22/2020 HEPATITIS C SCREENING Routine 03/28/2016 HIV SCREENING Routine 03/28/2016 from Last 3 Months or Most Recently Relevant to Health Maintenance Results * Lipid panel with reflex to direct LDL (10/25/2024 8:28 AM EDT) Cholesterol 152 0 - 200 mg/dL LAB CHEMISTRY METHOD 10/25/2024 10:53 AM EDT [facility] Triglycerides 112 0 - 150 mg/dL LAB CHEMISTRY METHOD 10/25/2024 10:53 AM EDT [facility] HDL 50 >=40 mg/dL LAB CHEMISTRY METHOD 10/25/2024 10:53 AM EDT [facility] LDL Calculated 80 0 - 100 mg/dL LAB CHEMISTRY METHOD 10/25/2024 10:53 AM EDT [facility] VLDL Cholesterol Gibson 22.4 mg/dL LAB CHEMISTRY METHOD 10/25/2024 10:53 AM EDT [facility] Non HDL Chol. (LDL+VLDL) 102 <145 mg/dL LAB CHEMISTRY METHOD 10/25/2024 10:53 AM EDT [facility] Chol/HDL Ratio 3.0 0.0 - 4.4 LAB CHEMISTRY METHOD 10/25/2024 10:53 AM EDT [facility] Blood Venous blood specimen / Unknown Venipuncture / Unknown 10/25/2024 8:28 AM EDT 10/25/2024 8:34 AM EDT Aleja Fitch MD LAB BLOOD ORDERABL ES Final Result [facility] [address] [place] [address], * External Mammogram Report (10/06/2024) Anatomical Region Laterality Modality Mammography Provider Marielos Onbase IMG BI PROCEDURES Final Result * Colonoscopy (02/18/2022) [facility] Colonoscopy no interpretation , abstracted Anatomical Region Laterality Modality Other [facility] Provider HEALTH MAINTENANCE Final Result * Pap Smear (05/22/2020) [facility] Pap smear no interpretation , abstracted Result [facility] Provider HEALTH MAINTENANCE Final Result * HIV Screening (03/28/2016) [facility] HIV Screening abstracted Result [facility] Provider HEALTH MAINTENANCE Final Result * Hepatitis C Screening (03/28/2016) [facility] Hepatitis C Screening abstracted [facility] Provider HEALTH MAINTENANCE Final Result from Last 3 Months or Most Recently Relevant to Health Maintenance Insurance * Guarantor: Evon Obrien Account Type Relation to Patient Date of Phone Billing Address Personal/Family Self 1970 [phone] (Work) [address] [place] [address] [facility] Care Teams Baggage And Mail Agent Relationship Specialty Start Date End Date Aleja Fitch MD [address] [place] [phone] PCP - General Internal Medicine 06/23/24
== END 2025-05-24 09:23 | disposition home or self-care (01) ==
LOC: HO.HWS 08:38
PROVIDERS: PCP Internal Medicine; Visit Provider Advanced Practice Midwife
DX: Z01.419 Encounter for gynecological examination (general) (routine) without abnormal findings (principal); N89.8 Other specified noninflammatory disorders of vagina
CPT/HCPCS: 99386; 99459

== ENCOUNTER 2025-05-24 08:37 | Outpatient (REF) | payer OTHER, SELFPAY ==
[2025-05-24 22:29] LABS: Bacterial Vaginosis PCR POSITIVE (Negative); Candida Group PCR NOT DETECTED (Not Detect); Candida glab krusei PCR NOT DETECTED (Not Detect); Trichomonas vaginalis PCR NOT DETECTED (Not Detect)
== END 2025-05-24 08:38 | disposition home or self-care (01) ==
LOC: HO.LNP 08:37
PROVIDERS: PCP Internal Medicine; Visit Provider Advanced Practice Midwife
DX: Z01.419 Encounter for gynecological examination (general) (routine) without abnormal findings (principal); N89.8 Other specified noninflammatory disorders of vagina; Z20.2 Contact with and (suspected) exposure to infections with a predominantly sexual mode of transmission
CPT/HCPCS: 81515